=== PATIENT | female | born 1975 | race Caucasian/White ===

== ENCOUNTER 2019-08-18 10:29 | Emergency (ER) | payer BC ==
[2019-08-18 10:42] VITALS: BP 184/100; PULSE 92
[2019-08-18] MEDS ORDERED: Aspirin 81 MG Tab.Chew PO ONE (10:44)
--- NOTE | 2019-08-18 10:47 | EDM.PDOC ---
ED HPI GENERAL MEDICAL PROBLEM - General Chief Complaint: Chest Pain Stated Complaint: MEDICAL Time Seen by Provider: 08/18/19 10:45 Source of Information: Reports: Patient, RN History Limitations: Reports: Other (limited old records) - History of Present Illness INITIAL COMMENTS - FREE TEXT/NARRATIVE: 44 yo female here with L anterior chest pain for the past 5 days. Was initially severe and began while lying on the couch. Pain has been mild ever since. No self tx. No nausea, diaphoresis or SOB. Denies injury to the area. Has not been to the clinic. Her last BP check was a couple yrs ago. Does smoke. No FHx of CAD. No personal hx of CAD. Pain is worse with pressing over the area or coughing or bending over. Onset: Sudden Onset Date: 08/13/19 Duration: Day(s):, Constant Location: Reports: Chest (L upper/anterior) Quality: Reports: Other (mild pressure) Severity: Mild Improves with: Reports: Rest Worsens with: Reports: Movement Context: Reports: Other (See HPI) Associated Symptoms: Reports: Chest Pain (Left anterior). Denies: Cough, Diaphoresis, Fever/Chills, Nausea/Vomiting, Rash, Shortness of Breath Treatments CITY DIRECTOR: Reports: Aspirin (81 mg) - Related Data Allergies Allergy/AdvReac Type Severity Reaction Status Date / Time acetaminophen Allergy Unknown Irritabilit Verified 11/23/12 06:22 [From Darvocet-N 100] y butorphanol tartrate Allergy Unknown Cannot Verified 11/23/12 06:22 [From Stadol] Remember meperidine HCl [From Demerol] Allergy Unknown Rash Verified 11/23/12 06:22 propoxyphene napsylate Allergy Unknown Irritabilit Verified 11/23/12 06:22 [From Darvocet-N 100] y Home Meds: Home Meds NK [No Known Home Meds] 11/23/12 [History] Past Medical History [employer] History: Reports: - Past Surgical History HEENT Surgical History: Reports: Adenoidectomy, Tonsillectomy Female Surgical History: Reports: Tubal Ligation Social & Family History - Tobacco Use Smoking Status *Q: Heavy Tobacco Smoker Years of Tobacco use: 24 Packs/Tins Daily: 0.5 - Caffeine Use Caffeine Use: Reports: None - Recreational Drug Use Recreational Drug Use: No ED ROS GENERAL - Review of Systems Review Of Systems: See Below Constitutional: Reports: No Symptoms HEENT: Reports: No Symptoms Respiratory: Reports: No Symptoms Cardiovascular: Reports: Chest Pain (L upper/anterior chest ) Endocrine: Reports: No Symptoms GI/Abdominal: Reports: No Symptoms : Reports: No Symptoms Musculoskeletal: Reports: No Symptoms Skin: Reports: No Symptoms Neurological: Reports: No Symptoms ED EXAM, GENERAL - Physical Exam Exam: See Below Exam Limited By: No Limitations General Appearance: Alert, WD/WN, No Apparent Distress, Obese Eye Exam: Bilateral Eye: Normal Inspection, PERRL Ears: Normal External Exam, Normal Canal, Hearing Grossly Normal Ear Exam: Bilateral Ear: Auricle Normal, Canal Normal Nose: Normal Inspection, No Blood Throat/Mouth: Normal Inspection, Normal Lips, Normal Oropharynx, Normal Voice, No Airway Compromise Head: Atraumatic, Normocephalic Neck: Normal Inspection Respiratory/Chest: No Respiratory Distress, Lungs Clear, Normal Breath Sounds, No Accessory Muscle Use Cardiovascular: Regular Rate, Rhythm, No Edema GI/Abdominal: Soft, Non-Tender, No Distention, Other (obese). No: Distended, Guarding, Rigid, Rebound, Tender Back Exam: Normal Inspection. No: CVA Tenderness (R), CVA Tenderness (L) Extremities: Normal Inspection, Normal Range of Motion, Non-Tender, No Pedal Edema. No: Pedal Edema Neurological: Alert, Oriented, CN II-XII Intact, Normal Cognition, No Motor/ Sensory Deficits Psychiatric: Normal Affect, Normal Mood Skin Exam: Warm, Dry, Intact, Normal Color, No Rash EKG INTERPRETATION EKG Date: 08/18/19 Time: 10:35 Rhythm: NSR Rate (Beats/Min): 93 [place]: Normal P-Wave: Present QRS: Normal ST-T: Normal QT: Normal Comparison: NA - No Prior EKG EKG Interpretation Comments: flipped T's in III and AVF, otherwise normal. Course - Vital Signs Last Recorded V/S: Last Vital Signs Temp 37 C 08/18/19 10:42 Pulse 92 08/18/19 10:42 Resp 16 08/18/19 10:42 BP 184/100 H 08/18/19 10:42 Pulse Ox 98 08/18/19 10:42 - Orders/Labs/Meds Orders: Active Orders 24 hr Category Date Time Status Cardiac Monitoring [RC] .As Directed Care 08/18/19 10:43 Active EKG Documentation Completion [RC] ASDIRECTED Care 08/18/19 10:43 Active EKG 12 Lead [EK] Routine Ther 08/18/19 10:42 Ordered Labs: Laboratory Tests 08/18/19 Range/Units 11:29 Sodium 143 (140-148) mmol/L Potassium 3.4 L (3.6-5.2) mmol/L Chloride 103 (100-108) mmol/L Carbon Dioxide 28 (21-32) mmol/L Anion Gap 15.4 H (5.0-14.0) mmol/L BUN 16 (7-18) mg/dL Creatinine 1.0 (0.6-1.0) mg/dL Est Cr Clr Drug Dosing 60.62 mL/min Estimated GFR (MDRD) > 60 (>60) Glucose 108 H (74-106) mg/dL Calcium 8.8 (8.5-10.1) mg/dL Troponin I < 0.017 (0.000-0.056) ng/mL Meds: Medications Discontinued Medications Generic Name Dose Route Start Last Admin Trade Name Freq PRN Reason Stop Dose Admin Aspirin 243 mg 08/18/19 10:44 08/18/19 10:50 Aspirin PO 08/18/19 10:45 243 mg ONETIME ONE Administration Ketorolac Tromethamine 60 mg 08/18/19 10:55 08/18/19 11:01 Toradol IM 08/18/19 10:56 60 mg ONETIME ONE Administration Departure - Departure Time of Disposition: 12:00 Disposition: Home, Self-Care 01 Condition: Good Clinical Impression: Chest wall pain, Hypokalemia HTN (hypertension) Qualifiers: Hypertension type: unspecified Qualified Code(s): I10 - Essential (primary) hypertension Instructions: Nonspecific Chest Pain, Adult, [id number] Referrals: PCP,None [Primary Care Provider] - Forms: ED Department Discharge Additional Instructions: Take Meloxicam 7.5 mg every 12 hrs with food. Take acetaminophen as needed for pain relief. Eat more foods rich in potassium. Recheck next week in your clinic. Return if a lot worse. Sepsis Event Note - Evaluation Sepsis Screening Result: No Definite Risk - Focused Exam Vital Signs: Vital Signs Temp Pulse Resp BP Pulse Ox 08/18/19 10:42 37 C 92 16 184/100 H 98 08/18/19 10:41 37 C 92 16 184/100 H 98 Date Exam was Performed: 08/18/19 Time Exam was Performed: 11:55 - My Orders Last 24 Hours: My Active Orders 08/18/19 10:42 EKG 12 Lead [EK] Routine 08/18/19 10:43 Cardiac Monitoring [RC] .As Directed EKG Documentation Completion [RC] ASDIRECTED - Assessment/Plan Last 24 Hours: My Active Orders 08/18/19 10:42 EKG 12 Lead [EK] Routine 08/18/19 10:43 Cardiac Monitoring [RC] .As Directed EKG Documentation Completion [RC] ASDIRECTED
[2019-08-18] MEDS ORDERED: Ketorolac 60 MG/2 ML SDV IM ONE (10:55)
== END 2019-08-18 12:07 | disposition home or self-care (01) ==
LOC: JP.ED 10:29
DX: I10 Essential (primary) hypertension (principal); E87.6 Hypokalemia; F17.210 Nicotine dependence, cigarettes, uncomplicated; Z88.6 Allergy status to analgesic agent; Z88.5 Allergy status to narcotic agent
CPT/HCPCS: 36415; 80048; 84484; 93005; 96372; 99285; A9270; J1885